=== PATIENT | male | born 1950 | race Caucasian/White ===

== ENCOUNTER 2017-12-04 11:40 | Outpatient (CLI) | payer MEDICARE, OTHER | END 2017-12-04 11:41 | disposition home or self-care (01) | LOC: BICRAD 11:40 | PROVIDERS: ATTEND Anesthesiology Pain Medicine | DX: M51.36 Other intervertebral disc degeneration, lumbar region (principal); M51.37 Other intervertebral disc degeneration, lumbosacral region; M43.16 Spondylolisthesis, lumbar region; M43.17 Spondylolisthesis, lumbosacral region | CPT/HCPCS: 72110 ==

== ENCOUNTER 2017-12-10 11:02 | Outpatient (CLI) | payer MEDICARE, OTHER ==
--- NOTE | 2017-12-10 12:48 | ULT ---
RENAL ULTRASOUND: INDICATIONS: Follow up lesions noted on left kidney from outside MRI. FINDINGS: The right kidney measures 12.4 cm in length. The left kidney measures 13.7 cm in length. No hydrone phrosis. Cortical echogenicity and thickness appear normal. There is a mildly complex cyst involving the inferior left kidney, which measures 4 to 4.5 cm. There is internal septation. This lesion is predominantly anechoic, indicating cystic characteristics. The bladder is contracted and is not adequately evaluated. IMPRESSION: Mildly complex cyst, inferior pole, left kidney, measuring up to 4.5 cm. Internal septation is ident ified. Suggest a follow-up renal ultrasound in 6 to 12 months to confirm stability. POS: NOAH
== END 2017-12-10 11:03 | disposition home or self-care (01) ==
LOC: SCSULT 11:02
PROVIDERS: ATTEND Family Medicine
DX: N28.1 Cyst of kidney, acquired (principal); N28.9 Disorder of kidney and ureter, unspecified
CPT/HCPCS: 76770

== ENCOUNTER 2018-05-26 14:49 | Outpatient (CLI) | payer MEDICARE, OTHER | END 2018-05-26 14:50 | disposition home or self-care (01) | LOC: CTENTCT 14:49 | PROVIDERS: ATTEND Otolaryngology Plastic Surgery within the Head & Neck | DX: J32.9 Chronic sinusitis, unspecified (principal) | CPT/HCPCS: 36415; 70486; 82785 ==

== ENCOUNTER 2018-12-24 09:27 | Emergency (ER) | payer MEDICARE, OTHER ==
[2018-12-24] MEDS ORDERED: Adacel (T-DAP) 0.5 ML SYRINGE ONE (09:49)
[2018-12-24] MEDS ORDERED: Bacitracin Zinc 1 Packet ONE ×2 (09:56→10:30)
--- NOTE | 2018-12-24 10:20 | RAD ---
XR Foot Lt 3 View STANDARD HISTORY: Injury, left foot pain FINDINGS: There is an age indeterminate avulsion fracture at the medial aspect of the base of the proximal phal anx of the second toe. Clinical correlation is recommended. No dislocation is identified. Posterior and plantar calcaneal spurs are present. Vascular calcificati ons are present.
== END 2018-12-24 10:42 | disposition home or self-care (01) ==
LOC: SCSER 09:27
DX: S92.512A Displaced fracture of proximal phalanx of left lesser toe(s), initial encounter for closed fracture (principal); I25.10 Atherosclerotic heart disease of native coronary artery without angina pectoris; E11.9 Type 2 diabetes mellitus without complications; E78.5 Hyperlipidemia, unspecified; I10 Essential (primary) hypertension; Z79.82 Long term (current) use of aspirin; Z79.899 Other long term (current) drug therapy; Z79.4 Long term (current) use of insulin; W22.8XXA Striking against or struck by other objects, initial encounter
CPT/HCPCS: 90471; 90715

== ENCOUNTER 2021-03-28 14:37 | Outpatient (CLI) | payer MEDICARE, OTHER | END 2021-03-28 14:38 | disposition home or self-care (01) | LOC: CTENTCT 14:37 | PROVIDERS: ATTEND Otolaryngology Plastic Surgery within the Head & Neck | DX: J32.9 Chronic sinusitis, unspecified (principal) | CPT/HCPCS: 70486 ==

== ENCOUNTER 2022-10-24 12:34 | Outpatient (CLI) | payer MEDICARE, OTHER | END 2022-10-24 12:35 | disposition home or self-care (01) | LOC: SCSMRI 12:34 | PROVIDERS: ATTEND Family Medicine | DX: R29.898 Other symptoms and signs involving the musculoskeletal system (principal); M62.561 Muscle wasting and atrophy, not elsewhere classified, right lower leg; M51.26 Other intervertebral disc displacement, lumbar region; M47.816 Spondylosis without myelopathy or radiculopathy, lumbar region; M47.817 Spondylosis without myelopathy or radiculopathy, lumbosacral region; M51.36 Other intervertebral disc degeneration, lumbar region; M48.061 Spinal stenosis, lumbar region without neurogenic claudication; M51.27 Other intervertebral disc displacement, lumbosacral region; M48.07 Spinal stenosis, lumbosacral region | CPT/HCPCS: 72148 ==

== ENCOUNTER 2022-11-07 12:39 | Outpatient (CLI) | payer MEDICARE, OTHER | END 2022-11-07 12:40 | disposition home or self-care (01) | LOC: SCSMRI 12:39 | PROVIDERS: ATTEND Psychiatry & Neurology Neurology | DX: R26.9 Unspecified abnormalities of gait and mobility (principal); G20 Parkinson's disease | CPT/HCPCS: 70551 ==